=== PATIENT | male | born 2000 | race Caucasian/White ===

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

== ENCOUNTER 2023-10-29 18:06 | Inpatient (IN) | payer SELFPAY, OTHER ==
[2023-10-29 19:05] LABS: #Eosinphils 0.1 thou/uL (0.0-0.7); #Monocytes 0.8 thou/uL (0.11-0.59); #Neutrophils 7.3 thou/uL (1.40-6.50); %Basophils 0.4 % (0.0-1.0); %Eosinophils 1.2 % (0.0-10.0); %Lymphocytes 14.3 % (21.0-51.0); %Monocytes 8.4 % (0.0-10.0); %Neutrophils 75.2 % (42.0-75.0); Hematocrit 39.4 % (42.0-52.0); Hemoglobin 14.1 g/dL (14.0-18.0); Mean Corpuscular HGB CONC 35.8 g/dL (32.0-36.0); Mean Corpuscular Hemoglobin 30.4 pg (27.0-31.0); Mean Corpuscular Volume 84.9 fl (78.0-98.0); Mean Platelet Volume 12.2 fL (7.4-10.4); Platelet Count 163 10x3/uL (130-400); RBC Distribution Width 12.4 % (11.5-14.5); Red Blood Cell (RBC) Count 4.64 mill/uL (4.70-6.10); White Blood Cell (WBC) Count 9.8 10x3/uL (4.8-10.8)
[2023-10-29] MEDS ORDERED: CEFAZOLIN 2 GM VIAL ONE (19:08)
[2023-10-29] MEDS ORDERED: Boostrix 0.5 ML (Tdap) VIAL (>/=7 yrs of age) ONE (19:08)
[2023-10-29] MEDS ORDERED: Ondansetron PF 4 MG/2 ML Vial ONE ×2 (19:08→19:28)
[2023-10-29 19:32] LABS: Anion Gap 14 mmol/L (10-20); BUN (Urea Nitrogen) 19 mg/dL (8.9-20.6); Calc. Creatinine Clearance 0 mL/min (70-130); Calcium 9.5 mg/dL (7.8-10.44); Carbon Dioxide 26 mmol/L (22-29); Chloride 102 mmol/L (98-107); Estimated GFR 98; Glucose 95 mg/dL (70-105); Potassium 4.3 mmol/L (3.5-5.1); Sodium 138 mmol/L (136-145)
[2023-10-29] MEDS ORDERED: hydrALAZINE 20 MG/ML VIAL SLOW IVP PRN (19:50)
[2023-10-29] MEDS ORDERED: Acetaminophen 325 MG TAB PO PRN (19:50)
[2023-10-29] MEDS ORDERED: traMADol HCl 50 MG TAB PO PRN (19:50)
[2023-10-29] MEDS ORDERED: Lidocaine 1% w/Epinephrine 1:100K 20 ML VIAL ONE (20:28)
[2023-10-29] MEDS ORDERED: Morphine 4 MG/ML VIAL ONE ×2 (20:35→22:14)
[2023-10-29] MEDS ORDERED: CEFAZOLIN 1 GM in Sodium Chloride 0.9% 100 ML IVPB SCH (22:00)
[2023-10-29] MEDS ORDERED: Ketorolac Tromethamine 30 MG (1 mL) VIAL ONE (22:09)
[2023-10-29] MEDS ORDERED: Acetaminophen 500 MG TAB ONE (23:18)
[2023-10-30 00:17] VITALS: BMI 33.9
[2023-10-30] MEDS: Morphine 2 MG/ML VIAL SLOW IVP PRN (00:34)
[2023-10-30] MEDS: Sodium Chloride 0.9% 1,000 ML IV SCH (00:34)
[2023-10-30] MEDS: Ondansetron PF 4 MG/2 ML Vial IVP PRN (00:35)
[2023-10-30 04:38] VITALS: TEMP 98.1
[2023-10-30] MEDS: CEFAZOLIN 1 GM in Sodium Chloride 0.9% 100 ML IVPB SCH (04:39)
[2023-10-30] MEDS ORDERED: CEFAZOLIN 2 GM in Sodium Chloride 0.9% 100 ML IVPB SCH (07:15)
[2023-10-30] MEDS: Famotidine/PF 20 mg/2ml Vial SLOW IVP SCH (07:55)
[2023-10-30] MEDS ORDERED: CEFAZOLIN 2 GM VIAL ONE (13:39)
[2023-10-30] MEDS ORDERED: Sodium Chloride 0.9% 100 ML ONE (13:39)
[2023-10-30] MEDS ORDERED: fentaNYL PF 100 MCG/2 ML SYRINGE ONE (13:48)
[2023-10-30] MEDS ORDERED: Dexamethasone 20 MG/5 ML VIAL ONE (13:49)
[2023-10-30] MEDS ORDERED: Ondansetron PF 4 MG/2 ML Vial ONE (13:49)
[2023-10-30] MEDS ORDERED: Lidocaine 1% PF 5 ML VIAL ONE (13:49)
[2023-10-30] MEDS ORDERED: Midazolam HCl 2 mg/2 ml Vial ONE (13:49)
[2023-10-30] MEDS ORDERED: PROPOFOL 40 ML ONE (13:49)
[2023-10-30] MEDS ORDERED: Lidocaine 2% 6 ML (Jelly) SYR ONE (13:52)
[2023-10-30] MEDS ORDERED: Meperidine HCl/PF 25 MG (1 mL) VIAL ONE (15:06)
[2023-10-30] MEDS ORDERED: Meperidine HCl/PF 25 MG/ML VIAL SLOW IVP PRN ×2 (15:12)
[2023-10-30] MEDS ORDERED: Promethazine HCl 25 MG/ML VIAL IM PRN (15:12)
[2023-10-30] MEDS ORDERED: Ondansetron HCl/PF 4 MG/2 ML Vial IVP PRN (15:12)
[2023-10-30] MEDS ORDERED: HYDROmorphone 2 MG/ML VIAL SLOW IVP PRN (15:12)
[2023-10-30] MEDS: Ketorolac Tromethamine 30 MG (1 mL) VIAL IVP SCH (19:04)
[2023-10-30] MEDS: Cephalexin 250 MG CAP PO SCH (19:05)
[2023-10-30] MEDS: traMADol HCl 50 MG TAB PO SCH (19:05)
[2023-10-30 19:06] VITALS: BP 146/84
[2023-10-30] MEDS ORDERED: Ketorolac Tromethamine 30 MG (1 mL) VIAL IVP SCH (23:59)
== END 2023-10-30 18:30 | disposition home or self-care (01) | DRG 505 ==
LOC: ERS 18:06 → SURG B 19:50 → OBSVTOIN 10-30 13:27
PROVIDERS: ADMIT Surgery; ATTEND Surgery
PROC: 0QBN0ZZ Excision of Right Metatarsal, Open Approach (ICD-10-PCS; principal; 2023-10-30)
PROC: 0SQM0ZZ Repair Right Metatarsal-Phalangeal Joint, Open Approach (ICD-10-PCS; 2023-10-30)
DX: S92.311B Displaced fracture of first metatarsal bone, right foot, initial encounter for open fracture (principal); Z98.890 Other specified postprocedural states; W31.89XA Contact with other specified machinery, initial encounter
CPT/HCPCS: 12005; 36415; 80048; 85025; 90471; 90715; 96365; 96375; 96376; G0378; J0690; J1100; J1885; J2175; J2250; J2270; J2272; J2405; J2704; J3490; J7050; S0028

== ENCOUNTER 2024-02-07 08:35 | Emergency (ER) | payer SELFPAY ==
[2024-02-07] MEDS ORDERED: Acetaminophen 500 MG TAB ONE (09:22)
[2024-02-07] MEDS ORDERED: Ibuprofen 200 MG TAB ONE (09:23)
== END 2024-02-07 11:26 | disposition home or self-care (01) ==
LOC: ERS 08:35
DX: R07.9 Chest pain, unspecified (principal); R19.7 Diarrhea, unspecified; F17.290 Nicotine dependence, other tobacco product, uncomplicated
CPT/HCPCS: 93005